=== PATIENT | male | born 1995 | race African-American/Black ===

== ENCOUNTER 2017-03-03 00:03 | Emergency (ER) | payer SELFPAY ==
[2017-03-03] MEDS ORDERED: PROCHLORPERAZINE MALEATE 5 MG TABLET PO ONE (07:04)
--- NOTE | 2017-03-03 07:09 | ER Document Report ---
ED General - General Chief Complaint: Headache >24 hrs old Stated Complaint: HEADACHE TRAVEL OUTSIDE OF THE [place] IN LAST 30 DAYS: No - HPI Patient complains to provider of: headache Notes: Patient coming in for a headache ongoing greater than 24 hours. Patient initially states that he has been diagnosed with migraine headaches however with further questioning patient states he has never seen a doctor for his headaches nor has been formally diagnosed with migraine headaches states that more likely he has a migraine headache right now. Patient states most of his pain is concentrated left temporal region. Denies any nausea vomiting photosensitivity blurry vision numbness tingling unilateral generalized weakness. Denies any history trauma. Patient states he has not tried anything for his headache denies taking any Tylenol or Motrin. - Related Data Allergies/Adverse Reactions: No Known Allergies Allergy (Unverified 03/03/17 00:06) Past Medical History - Social History Smoking Status: Never Smoker Family History: Reviewed & Not Pertinent Patient has suicidal ideation: No Patient has homicidal ideation: No Renal/ Medical History: Denies: Hx Peritoneal Dialysis Surgical Hx: Negative Review of Systems - Review of Systems Constitutional: No symptoms reported EENT: No symptoms reported Cardiovascular: No symptoms reported Respiratory: No symptoms reported Gastrointestinal: No symptoms reported Genitourinary: No symptoms reported Male Genitourinary: No symptoms reported Musculoskeletal: No symptoms reported Skin: No symptoms reported Hematologic/Lymphatic: No symptoms reported Neurological/Psychological: Headaches -: Yes All other systems reviewed and negative Physical Exam - Vital signs Vitals: Temp Pulse Resp BP Pulse Ox 98.4 F 103 H 16 170/81 H 100 03/03/17 00:06 03/03/17 00:06 03/03/17 00:06 03/03/17 00:06 03/03/17 00:06 Interpretation: Normal - General General appearance: Appears well, Alert - HEENT Head: Normocephalic, Atraumatic Eyes: Normal Conjunctiva: Normal Cornea: Normal Extraocular movements intact: Yes Eyelashes: Normal Pupils: PERRL Fundascopic: Normal Ears: Normal External canal: Normal Tympanic membrane: Normal Sinus: Normal Nasal: Normal Pharynx: Normal Neck: Normal - Respiratory Respiratory status: No respiratory distress Chest status: Nontender Breath sounds: Normal Chest palpation: Normal - Cardiovascular Rhythm: Regular Heart sounds: Normal auscultation Murmur: No - Abdominal Inspection: Normal Distension: No distension Bowel sounds: Normal Tenderness: Nontender Organomegaly: No organomegaly - Back Back: Normal, Nontender - Extremities General upper extremity: Normal inspection, Nontender, Normal color, Normal ROM , Normal temperature General lower extremity: Normal inspection, Nontender, Normal color, Normal ROM , Normal temperature, Normal weight bearing. No: Pradip's sign - Neurological Neuro grossly intact: Yes Cognition: Normal Orientation: AAOx4 Ken[place] Coma Scale Eye Opening: Spontaneous Dylan Coma Scale Verbal: Oriented Dylan Coma Scale Motor: Obeys Commands Kenvir Coma Scale Total: 15 Speech: Normal Motor strength normal: LUE, RUE, LLE, RLE Sensory: Normal - Psychological Associated symptoms: Normal affect, Normal mood - Skin Skin Temperature: Warm Skin Moisture: Dry Skin Color: Normal Course - Re-evaluation Re-evalutation: 03/03/17 13:36 The patient presents with headache without signs of [employer] bleed, stroke, infection , or other serious etiology. The patient is neurologically intact. Given the extremely low risk of these diagnoses further testing and evaluation for these possibilities does not appear to be indicated at this time. The patient has been instructed to return if the symptoms worsen or change in any way.. - Vital Signs Vital signs: Temp Pulse Resp BP Pulse Ox 98.5 F 79 18 118/71 98 03/03/17 07:34 03/03/17 07:34 03/03/17 07:34 03/03/17 07:34 03/03/17 07:34 Discharge - Discharge Clinical Impression: Headache Qualifiers: Headache type: unspecified Headache chronicity pattern: unspecified pattern Intractability: not intractable Qualified Code(s): R51 - Headache Condition: Good Disposition: HOME, SELF-CARE Instructions: Headache ([facility]), Cluster Headache ([facility]) Additional Instructions: Please drink plenty water to stay hydrated. Return to the ER symptoms worsen. Take medication as prescribed. You may follow-up with the clinic or Dr. holt. Prescriptions: Aspirin/Acetaminophen/Caffeine [Excedrin Migraine Caplet] 1 each PO BID #20 tablet Prochlorperazine Maleate [Compazine 5 Mg Tablet] 5 mg PO Q6 #20 tablet Forms: Return to Work
[2017-03-03 07:37] VITALS: BP 118/71
== END 2017-03-03 07:37 | disposition home or self-care (01) ==
LOC: ER 00:03
DX: R51 Headache (principal)
CPT/HCPCS: 99283; S0183

== ENCOUNTER 2017-07-28 03:47 | Emergency (ER) | payer SELFPAY ==
--- NOTE | 2017-07-28 05:11 | ER Document Report ---
ED GI/ - General Chief Complaint: Rectal Pain Stated Complaint: RECTAL PAIN Time Seen by Provider: 07/28/17 04:53 Notes: Patient is a 21-year-old male who comes emergency department for chief complaint of "something wrong with my rectal area". He states that for the past 2 years he has intermittently had difficulties with the area feeling like there is something infected or growing, he states that he has had pus discharge from the area multiple times. He denies any current pain. He denies fever or chills. He denies difficulty with bowel movements. He denies any daily medications. He denies any medical history. TRAVEL OUTSIDE OF THE [place] IN LAST 30 DAYS: No - Related Data Allergies/Adverse Reactions: No Known Allergies Allergy (Unverified 03/03/17 00:06) Past Medical History - General Information source: Patient - Social History Smoking Status: Never Smoker Frequency of alcohol use: None Drug Abuse: None Lives with: Family Family History: Reviewed & Not Pertinent Patient has suicidal ideation: No Patient has homicidal ideation: No - Medical History Medical History: Negative Renal/ Medical History: Denies: Hx Peritoneal Dialysis Surgical Hx: Negative - Immunizations Immunizations up to date: Yes Hx Diphtheria, Pertussis, Tetanus Vaccination: Yes Review of Systems - Review of Systems Constitutional: No symptoms reported EENT: No symptoms reported Cardiovascular: No symptoms reported Respiratory: No symptoms reported Gastrointestinal: See HPI Genitourinary: No symptoms reported Male Genitourinary: No symptoms reported Musculoskeletal: No symptoms reported Skin: See HPI Hematologic/Lymphatic: No symptoms reported Neurological/Psychological: No symptoms reported Physical Exam - Vital signs Vitals: Temp Pulse Resp BP Pulse Ox 98.4 F 103 H 18 133/78 H 97 07/28/17 03:55 07/28/17 03:55 07/28/17 03:55 07/28/17 03:55 07/28/17 03:55 Interpretation: Normal - General General appearance: Appears well, Alert, Other - Patient appears nervous but he is otherwise very well-appearing - HEENT Head: Normocephalic, Atraumatic Eyes: Normal Pupils: PERRL - Respiratory Respiratory status: No respiratory distress Chest status: Nontender Breath sounds: Normal Chest palpation: Normal - Cardiovascular Rhythm: Regular. No: Tachycardia Heart sounds: Normal auscultation, S1 appreciated, S2 appreciated Murmur: No - Abdominal Inspection: Normal Distension: No distension Bowel sounds: Normal Tenderness: Nontender. No: Tender, Guarding - Completely soft and benign abdomen Organomegaly: No organomegaly - Rectal Tenderness: No Hemorrhoids: No: External, Anal fissure - Back Back: Normal, Nontender - Extremities General upper extremity: Normal inspection, Nontender, Normal color, Normal ROM , Normal temperature General lower extremity: Normal inspection, Nontender, Normal color, Normal ROM , Normal temperature, Normal weight bearing. No: Pradip's sign - Neurological Neuro grossly intact: Yes Cognition: Normal Orientation: AAOx4 Dylan Coma Scale Eye Opening: Spontaneous [place] Coma Scale Verbal: Oriented Dylan Coma Scale Motor: Obeys Commands Dylan Coma Scale Total: 15 Speech: Normal Motor strength normal: LUE, RUE, LLE, RLE Sensory: Normal - Psychological Associated symptoms: Normal affect, Normal mood - Skin Skin Temperature: Warm Skin Moisture: Dry Skin Color: Normal Location of irregularity: Other - Pilonidal cyst noted, no discharge, tenderness , induration, swelling noted. Otherwise unremarkable skin exam. Course - Re-evaluation Re-evalutation: Unremarkable external rectal examination. Physical examination is consistent with a pilonidal cyst without abscess. No evidence of infection. Patient provided with an up-to-date handout on this, I discussed recommendations for this in detail. Patient states gratefulness on being informed what it is. Discussed follow-up and return precautions. Patient verbalizes understanding and agreement. - Vital Signs Vital signs: Temp Pulse Resp BP Pulse Ox 98 F 84 14 137/76 H 99 07/28/17 06:39 07/28/17 06:39 07/28/17 06:39 07/28/17 06:39 07/28/17 06:39 Discharge - Discharge Clinical Impression: Pilonidal cyst Condition: Stable Disposition: HOME, SELF-CARE Additional Instructions: Your examination shows a pilonidal cyst. There is no evidence that is infected at this time. Because this has had multiple episodes of drainage, I do recommend that you follow-up with surgery for consultation and possible removal of the cyst. See referral. In regards to your constipation issues consider [id number] MiraLAX or Colace occasionally and only if needed, I would try to increase fiber in your diet first. Return to emergency department for any concerning or worsening symptoms including swelling or redness to the area, pain, fever, or any other concerning symptoms. Forms: Return to Work, Elevated Blood Pressure Referrals: RODOLFO AMES MD [ACTIVE STAFF] - Follow up as needed
[2017-07-28 06:41] VITALS: BP 137/76
== END 2017-07-28 06:40 | disposition home or self-care (01) ==
LOC: ER 03:47
DX: L05.91 Pilonidal cyst without abscess (principal); K62.89 Other specified diseases of anus and rectum
CPT/HCPCS: 99283

== ENCOUNTER 2018-05-21 03:50 | Emergency (ER) | payer SELFPAY ==
[2018-05-21] MEDS ORDERED: LIDOCAINE 1% INJ-PF (10 MG/ML) 30 ML SDV INFIL ONE (04:24)
[2018-05-21] MEDS ORDERED: CEFTRIAXONE INJ 250 MG VIAL IM ONE (04:24)
[2018-05-21] MEDS ORDERED: AZITHROMYCIN 250 MG TABLET PO ONE (04:24)
--- NOTE | 2018-05-21 04:26 | ER Document Report ---
ED GI/ - General Chief Complaint: Penile Bleeding Stated Complaint: PENILE PAIN/BLEEDING Time Seen by Provider: 05/21/18 04:19 Notes: The patient is a 22-year-old male who presents after he noticed a small amount of blood in his urine earlier tonight. He is very anxious about this. Patient does have unprotected intercourse with his girlfriend and denies testicular pain , abdominal pain, fevers, flank pain, nausea or vomiting. TRAVEL OUTSIDE OF THE [place] IN LAST 30 DAYS: No - Related Data Allergies/Adverse Reactions: No Known Allergies Allergy (Unverified 03/03/17 00:06) Past Medical History - General Information source: Patient - Social History Smoking Status: Unknown if Ever Smoked Family History: Reviewed & Not Pertinent Renal/ Medical History: Denies: Hx Peritoneal Dialysis - Immunizations Immunizations up to date: Yes Hx Diphtheria, Pertussis, Tetanus Vaccination: Yes Review of Systems - Review of Systems Notes: REVIEW OF SYSTEMS: CONSTITUTIONAL: -fevers, -chills EENT: -eye pain, -difficulty swallowing, -nasal congestion CARDIOVASCULAR: -chest pain, -syncope. RESPIRATORY: -cough, -SOB GASTROINTESTINAL: -abdominal pain, -nausea, -vomiting, -diarrhea GENITOURINARY: +dysuria, +hematuria MUSCULOSKELETAL: -back pain, -neck pain SKIN: -rash or skin lesions. HEMATOLOGIC: -easy bruising or bleeding. LYMPHATIC: -swollen, enlarged glands. NEUROLOGICAL: -altered mental status or loss of consciousness, -headache, - neurologic symptoms PSYCHIATRIC: +anxiety, -depression. ALL OTHER SYSTEMS REVIEWED AND NEGATIVE. Physical Exam - Vital signs Vitals: Temp Pulse Resp BP Pulse Ox 98.4 F 100 18 144/87 H 98 05/21/18 03:56 05/21/18 03:56 05/21/18 03:56 05/21/18 03:56 05/21/18 03:56 - Notes Notes: PHYSICAL EXAMINATION: GENERAL: No acute distress, appears very anxious. HEAD: Atraumatic, normocephalic. EYES: Pupils equal round and reactive to light, extraocular movements intact, sclera anicteric, conjunctiva are normal. ENT: nares patent, oropharynx clear without exudates. Moist mucous membranes. NECK: Normal range of motion, supple without lymphadenopathy LUNGS: Breath sounds clear to auscultation bilaterally and equal. No wheezes rales or rhonchi. HEART: Regular rate and rhythm without murmurs ABDOMEN: Soft, nontender, normoactive bowel sounds. No guarding, no rebound. No masses appreciated. : Non-tender testicles, no penile discharge or bleeding. EXTREMITIES: Normal range of motion, no pitting or edema. No cyanosis. NEUROLOGICAL: Cranial nerves grossly intact. Normal speech, normal gait. Normal sensory and motor exams. PSYCH: Very anxious affect. SKIN: Warm, Dry, normal turgor, no rashes or lesions noted. Course - Re-evaluation Re-evalutation: Patient with mild dysuria and is passing small amount of clots. He does have unprotected intercourse and said he would like to be treated empirically for gonorrhea and chlamydia before the test results. Instructed him to tell his partners to follow-up at the health department for treatment and evaluation. Also told him to always wear condoms. - Vital Signs Vital signs: Temp Pulse Resp BP Pulse Ox 98.4 F 100 18 144/87 H 98 05/21/18 03:56 05/21/18 03:56 05/21/18 03:56 05/21/18 03:56 05/21/18 03:56 Discharge - Discharge Clinical Impression: Dysuria Condition: Stable Disposition: HOME, SELF-CARE Additional Instructions: Have your partner get treated for STDs at the [facility]. Always wear condoms. ANTIBIOTIC THERAPY: You have been given an antibiotic prescription. It's important that you take all the medication, unless instructed otherwise by your physician. Failure to complete the entire course can result in relapse of your condition. Common side effects of antibiotics include nausea, intestinal cramping, or diarrhea. Women may develop vaginal yeast infections, and babies can get yeast (thrush) in the mouth following the use of antibiotics. Contact your physician if you develop significant side effects from this medication. Allergy to this antibiotic can result in hives, wheezing, faintness, or itching. If symptoms of allergy occur, stop the medication and call the doctor. CEPHALOSPORINS: An antibiotic of the cephalosporin class has been prescribed. This type of antibiotic covers a wide variety of infections, including those of the skin, lungs, middle ear, and urinary tract. This antibiotic is somewhat similar to the penicillin family. In rare cases , a person who is allergic to penicillin will also be allergic to this medication. If you have had a severe allergic reaction to penicillin, and have not taken this antibiotic since that time, notify your doctor. Antibiotics which cover many germs ("broad spectrum" antibiotics) are more likely to cause diarrhea or "yeast" infections. Women prone to vaginal yeast problems may suffer an attack after taking this antibiotic. In infants, oral thrush (white spots "stuck" on the cheek) or yeast diaper rash may result. See your doctor if these problems occur. Call the doctor at once if you develop hives, itching, shortness of breath , or lightheadedness. AZITHROMYCIN: Azithromycin (Zithromax) is a broad spectrum antibiotic in the same class as erythromycin. It can treat a variety of bacterial infections, but is most frequently used for respiratory infections. Azithromycin is extremely long-lasting. It accumulates in body tissues and continues to kill bacteria for many days. In order to improve absorption, Azithromycin should be taken at least one hour before or two hours after a meal. It does not have the same strong tendency to upset the stomach as erythromycin and is usually very well tolerated. Patients who have had a rash or other true allergic reactions to erythromycin should not take this medication. Call if you develop gastrointestinal distress, severe diarrhea, rash, hives, itching, or shortness of breath. FOLLOW-UP CARE: If you have been referred to a physician for follow-up care, call the physician s office for an appointment as you were instructed or within the next two days. If you experience worsening or a significant change in your symptoms, notify the physician immediately or return to the Emergency Department at any time for re-evaluation. Forms: Elevated Blood Pressure Referrals: [facility] [NO LOCAL MD] - Follow up as needed
[2018-05-21 04:51] LABS: APPEARANCE,URINE CLOUDY; BILIRUBIN,URINE NEGATIVE (NEGATIVE); COLOR,URINE YELLOW; GLUCOSE, URINE NEGATIVE (NEGATIVE); KETONES,URINE TRACE mg/dL (NEGATIVE); LEUKOCYTE ESTERASE,URINE MODERATE (NEGATIVE); NITRITE,URINE NEGATIVE (NEGATIVE); PROTEIN,URINE 100 mg/dL (NEGATIVE); URINE SPECIFIC GRAVITY 1.032
[2018-05-21] MEDS ORDERED: CEPHALEXIN 500 MG CAPSULE PO ONE (05:00)
[2018-05-21 05:51] VITALS: BP 124/81
[2018-05-21 06:11] LABS: CHLAM PCR DETECTED (NOT DETECT); GON PCR NOT DETECTED (NOT DETECT)
== END 2018-05-21 05:43 | disposition home or self-care (01) ==
LOC: ER 03:50
DX: N30.01 Acute cystitis with hematuria (principal); F41.9 Anxiety disorder, unspecified
CPT/HCPCS: 99283; 96372; 81001; 87491; 87591; J3490; J0696

== ENCOUNTER 2019-02-10 13:59 | Emergency (ER) | payer SELFPAY ==
[2019-02-10] MEDS ORDERED: CEFTRIAXONE INJ 250 MG VIAL IM ONE (14:36)
[2019-02-10] MEDS ORDERED: AZITHROMYCIN 250 MG TABLET PO ONE (14:36)
[2019-02-10] MEDS ORDERED: LIDOCAINE 1% INJ-PF (10 MG/ML) 30 ML SDV NEB ONE (14:36)
[2019-02-10] MEDS ORDERED: METRONIDAZOLE 500 MG TABLET PO ONE (14:37)
--- NOTE | 2019-02-10 14:42 | ER Document Report ---
ED GI/ - General Chief Complaint: Penile Discharge Stated Complaint: PENILE DISCHARGE Time Seen by Provider: 02/10/19 14:25 Mode of Arrival: Ambulatory Information source: Patient Notes: 23-year-old male presents to ED for complaint of white penile discharge since Wednesday. He states he is very irritated and leiva with urination. He states he was tested and treated last year for STDs but nobody told him what he had. He states it is affecting him at work and he needs to be tested and treated and found it was going on. Patient is alert oriented respirations regular and unlabored speaking in full sentences walking with a even steady gait. TRAVEL OUTSIDE OF THE [place] IN LAST 30 DAYS: No - HPI Patient complains to provider of: Other - Penile discharge burning with urination Onset: Other - Wednesday Timing/Duration: Persistent Quality of pain: Burning Severity at maximum: Moderate Pain Level: Denies Associated symptoms: Other - penis Exacerbated by: Other - urination Relieved by: Denies Similar symptoms previously: Yes Recently seen / treated by doctor: No - Related Data Allergies/Adverse Reactions: No Known Allergies Allergy (Verified 02/10/19 14:03) Past Medical History - General Information source: Patient - Social History Smoking Status: Never Smoker Frequency of alcohol use: None Drug Abuse: None Lives with: Alone Family History: Reviewed & Not Pertinent Patient has suicidal ideation: No Patient has homicidal ideation: No - Past Medical History Cardiac Medical History: Reports: None Pulmonary Medical History: Reports: None EENT Medical History: Reports: None Neurological Medical History: Reports: None Endocrine Medical History: Reports: None Renal/ Medical History: Reports: None Malignancy Medical History: Reports None GI Medical History: Reports: None Musculoskeletal Medical History: Reports None Skin Medical History: Reports None Psychiatric Medical History: Reports: None Traumatic Medical History: Reports: None Infectious Medical History: Reports: None Surgical Hx: Negative Past Surgical History: Reports: None - Immunizations Immunizations up to date: Yes Hx Diphtheria, Pertussis, Tetanus Vaccination: Yes Review of Systems - Review of Systems Constitutional: No symptoms reported EENT: No symptoms reported Cardiovascular: No symptoms reported Respiratory: No symptoms reported Gastrointestinal: No symptoms reported Genitourinary: Burning Male Genitourinary: Penile discharge Musculoskeletal: No symptoms reported Skin: No symptoms reported Hematologic/Lymphatic: No symptoms reported Neurological/Psychological: No symptoms reported -: Yes All other systems reviewed and negative Physical Exam - Vital signs Vitals: Temp Pulse Resp BP Pulse Ox 98.2 F 81 16 144/86 H 100 02/10/19 14:07 02/10/19 14:07 02/10/19 14:07 02/10/19 14:07 02/10/19 14:07 Interpretation: Normal - General General appearance: Appears well, Alert - HEENT Head: Normocephalic, Atraumatic Eyes: Normal Pupils: PERRL - Respiratory Respiratory status: No respiratory distress Chest status: Nontender Breath sounds: Normal Chest palpation: Normal - Cardiovascular Rhythm: Regular Heart sounds: Normal auscultation Murmur: No - Abdominal Inspection: Normal Distension: No distension Bowel sounds: Normal Tenderness: Nontender Organomegaly: No organomegaly - Genitourinary Inspection: Penile discharge - white Tenderness: Nontender Cremasteric reflex: Normal Scrotum: Normal - Back Back: Normal, Nontender - Extremities General upper extremity: Normal inspection, Nontender, Normal color, Normal ROM, Normal temperature General lower extremity: Normal inspection, Nontender, Normal color, Normal ROM, Normal temperature, Normal weight bearing. No: Pradip's sign - Neurological Neuro grossly intact: Yes Cognition: Normal Orientation: AAOx4 Douds Coma Scale Eye Opening: Spontaneous Dylan Coma Scale Verbal: Oriented Douds Coma Scale Motor: Obeys Commands Dylan Coma Scale Total: 15 Speech: Normal Motor strength normal: LUE, RUE, LLE, RLE Sensory: Normal - Psychological Associated symptoms: Normal affect, Normal mood - Skin Skin Temperature: Warm Skin Moisture: Dry Skin Color: Normal Course - Vital Signs Vital signs: Temp Pulse Resp BP Pulse Ox 98.3 F 91 16 113/67 100 02/10/19 16:25 02/10/19 16:25 02/10/19 16:25 02/10/19 16:25 02/10/19 16:25 - Laboratory Laboratory results interpreted by me: 02/10/19 02/10/19 14:33 15:16 Ur Leukocyte Esterase LARGE H Chlamydia DNA (PCR) DETECTED H N.gonorrhoeae DNA (PCR) DETECTED H Discharge - Discharge Clinical Impression: Penile discharge, Urethritis, Gonorrhea, Chlamydia Condition: Stable Disposition: HOME, SELF-CARE Additional Instructions: Urethritis You have urethritis, an infection of the urethra. The usual symptoms are pain on urination and discharge. The infection is often caused by gonorrhea or chlamydia. Treatment is antibiotics. In addition, any sexual contacts should be evaluated by a physician as soon as possible. As this infection can be transmitted sexually, refrain from sexual activity until the infection is confirmed as healed by your physician. If gonorrhea or chlamydia is found on culture, the health department must be notified. Call the doctor at once if you develop difficulty passing your urine, high fever, rash, joint swelling, or other new symptoms. Gonorrhea You have been diagnosed with gonorrhea. In men, this germ infects the urethra (and sometimes the throat). Men usually have drainage from the penis and pain with urination. In women, the germ infects the vagina and fallopian tubes. There may be discharge and pelvic pain. Some women have no symptoms at all. The infection can do permanent damage to the tubes and ovaries. It should be taken very seriously. Treatment is antibiotics. It's important that you receive all recommended medication. Use condoms to prevent spread of the infection. Because this infection is spread sexually, your sexual partner must be checked before resuming sexual relations. If a culture shows gonorrhea germs, it must be reported to the health department. Call the doctor or return at once if you develop increasing fever, rash, joint swelling, severe pelvic pain, vaginal bleeding (other than your period), or problems with your bladder or bowels. CEPHALOSPORINS: An antibiotic of the cephalosporin class has been prescribed. This type of antibiotic covers a wide variety of infections, including those of the skin, lungs, middle ear, and urinary tract. This antibiotic is somewhat similar to the penicillin family. In rare cases, a person who is allergic to penicillin will also be allergic to this medication. If you have had a severe allergic reaction to penicillin, and have not taken this antibiotic since that time, notify your doctor. Antibiotics which cover many germs ("broad spectrum" antibiotics) are more likely to cause diarrhea or "yeast" infections. Women prone to vaginal yeast problems may suffer an attack after taking this antibiotic. In infants, oral thrush (white spots "stuck" on the cheek) or yeast diaper rash may result. See your doctor if these problems occur. Call the doctor at once if you develop hives, itching, shortness of breath, or lightheadedness. DOXYCYCLINE: Doxycycline (Vibramycin, Doryx) is an antibiotic of the tetracycline family. This type of drug is useful for infections of the respiratory tract and genital tract, and is sometimes used for intestinal infections. Unlike most tetracyclines, doxycycline can be taken with food. It is longer acting, and (usually) less prone to side effects than regular tetracycline. Tetracycline antibiotics can stain immature teeth and SHOULD NOT BE TAKEN BY CHILDREN, NURSING MOTHERS, OR WOMEN. Tetracyclines can make you more prone to sunburn. Abdominal cramping, nausea, and diarrhea are occasional side effects. Women may experience vaginal yeast infections. Call the doctor at once if you develop hives, itching, shortness of breath, or lightheadedness. AZITHROMYCIN: Azithromycin (Zithromax) is a broad spectrum antibiotic in the same class as erythromycin. It can treat a variety of bacterial infections, but is most frequently used for respiratory infections. Azithromycin is extremely long-lasting. It accumulates in body tissues and continues to kill bacteria for many days. In order to improve absorption, Azithromycin should be taken at least one hour before or two hours after a meal. It does not have the same strong tendency to upset the stomach as erythromycin and is usually very well tolerated. Patients who have had a rash or other true allergic reactions to erythromycin should not take this medication. Call if you develop gastrointestinal distress, severe diarrhea, rash, hives, itching, or shortness of breath. METRONIDAZOLE: Metronidazole (Flagyl) has been prescribed. This medication is used to kill a type of bacteria called anaerobes, and protozoan parasites such as trichomonas and Giardia. Flagyl often causes a metallic taste in the mouth and mild nausea. Do not use alcohol in any form with Flagyl (including alcohol in medication elixirs). Flagyl interacts with alcohol to cause flushing, palpitations, headache, stomach cramps, and vomiting. Do not use Flagyl if you are taking Antabuse (disulfiram). Call the doctor at once if you develop rash, shortness of breath, itching, or lightheadedness. FLUCONAZOLE: Fluconazole (Diflucan) is an antifungal drug. It is useful for serious fungal infections, but is also excellent for oral or vaginal yeast infections. Diflucan interacts with some medicines. This is a concern if you are taking anticoagulants (such as Coumadin), phenytoin (Dilantin), cyclosporin, or oral hypoglycemics (such as tolbutamide, Orinase, glipizide, Glucotrol, glyburide, DiaBeta, Glynase, and Micronase). Be sure the doctor knows if you are taking one of these medicines. We don't know how Diflucan affects . If you are planning to become , discuss this with your doctor. Diflucan has few side effects. Minor side effects may include nausea, headache, or diarrhea. Call the doctor if you develop a skin rash, shortness of breath, or other new symptoms. FOLLOW-UP CARE: If you have been referred to a physician for follow-up care, call the physicians office for an appointment as you were instructed or within the next two days. If you experience worsening or a significant change in your symptoms, notify the physician immediately or return to the Emergency Department at any time for re-evaluation. [facility] Internal Medicine [address] [facility] Open 9:00 AM - 5:00 PM [facility] [address] [facility] - 4:30 PM [facility] [address] [facility] [address] [facility] [address] [facility] Prescriptions: Doxycycline Hyclate 100 mg PO BID #14 capsule Metronidazole [Flagyl 500 mg Tablet] 500 mg PO BID #14 tablet Forms: Elevated Blood Pressure, Return to Work
[2019-02-10 15:35] LABS: APPEARANCE,URINE SLIGHTLY-CLOUDY; BILIRUBIN,URINE NEGATIVE (NEGATIVE); COLOR,URINE YELLOW; GLUCOSE, URINE NEGATIVE (NEGATIVE); KETONES,URINE NEGATIVE (NEGATIVE); LEUKOCYTE ESTERASE,URINE LARGE (NEGATIVE); NITRITE,URINE NEGATIVE (NEGATIVE); PROTEIN,URINE NEGATIVE (NEGATIVE); URINE SPECIFIC GRAVITY 1.019; UROBILINOGEN,URINE NEGATIVE mg/dL (<2.0)
[2019-02-10 16:18] LABS: CHLAM PCR DETECTED (NOT DETECT); GON PCR DETECTED (NOT DETECT)
[2019-02-10 16:26] VITALS: BP 113/67
== END 2019-02-10 16:25 | disposition home or self-care (01) ==
LOC: ER 13:59
DX: N34.2 Other urethritis (principal); B37.9 Candidiasis, unspecified; A54.9 Gonococcal infection, unspecified
CPT/HCPCS: 94640; 99283; 96372; 87086; 81001; 87491; 87591; J3490; J0696

== ENCOUNTER 2019-04-27 04:27 | Emergency (ER) | payer SELFPAY ==
--- NOTE | 2019-04-27 05:58 | ER Document Report ---
ED GI/ - General Chief Complaint: Bloody Stools Stated Complaint: BLOOD IN STOOL Time Seen by Provider: 04/27/19 05:23 Notes: Patient is a 23-year-old male that comes to the emergency department for chief complaint of bright red blood per rectum. This started yesterday, he has noticed it twice. He denies heavy bleeding, dizziness, abdominal pain, fever/chills, injury. He denies history of the same. He is unsure if he is constipated or not. He denies any daily medications or known past medical history. TRAVEL OUTSIDE OF THE [place] IN LAST 30 DAYS: No - Related Data Allergies/Adverse Reactions: No Known Allergies Allergy (Verified 04/27/19 04:33) Past Medical History - General Information source: Patient - Social History Smoking Status: Never Smoker Drug Abuse: None Lives with: Alone Family History: Reviewed & Not Pertinent - Medical History Medical History: Negative Renal/ Medical History: Denies: Hx Peritoneal Dialysis Surgical Hx: Negative - Immunizations Immunizations up to date: Yes Hx Diphtheria, Pertussis, Tetanus Vaccination: Yes Review of Systems - Review of Systems Constitutional: No symptoms reported EENT: No symptoms reported Cardiovascular: No symptoms reported Respiratory: No symptoms reported Gastrointestinal: See HPI Genitourinary: No symptoms reported Male Genitourinary: No symptoms reported Musculoskeletal: No symptoms reported Skin: No symptoms reported Hematologic/Lymphatic: No symptoms reported Neurological/Psychological: No symptoms reported Physical Exam - Vital signs Vitals: Temp Pulse Resp BP Pulse Ox 97.9 F 78 16 145/87 H 98 04/27/19 04:37 04/27/19 04:37 04/27/19 04:37 04/27/19 04:37 04/27/19 04:37 - Notes Notes: GENERAL: Alert, interacts well. No acute distress. HEAD: Normocephalic, atraumatic. EYES: Pupils equal, round, and reactive to light. Extraocular movements intact. ENT: Oral mucosa moist, tongue midline. Oropharynx unremarkable. Airway patent. LUNGS: Clear to auscultation bilaterally, no wheezes, rales, or rhonchi. No respiratory distress. HEART: Regular rate and rhythm. No murmur ABDOMEN: Soft, non-tender. Non-distended. Bowel sounds present in all 4 quadrants. GENITOURINARY: Deferred RECTAL: Small internal hemorrhoid noted at the 8 o'clock position, no current bleeding noted however Hemoccult is positive. No fissure, tenderness, external hemorrhoids, or other abnormality noted. EXTREMITIES: Moves all 4 extremities spontaneously. No edema, normal radial and dorsalis pedis pulses bilaterally. No cyanosis. BACK: no cervical, thoracic, lumbar midline tenderness. No saddle anesthesia, normal distal neurovascular exam. Moves all extremities in full range of motion. NEUROLOGICAL: Alert and oriented x3. Normal speech. Cranial nerves II through XII grossly intact. PSYCH: Normal affect, normal mood. SKIN: Warm, dry, normal turgor. No rashes or lesions noted. Course - Re-evaluation Re-evalutation: Abdomen is soft and benign. Patient well-appearing. Patient reporting bright red blood per rectum in a very small amount. On examination patient does have an internal hemorrhoid, I do suspect this is the source. There is no obvious bleeding on my evaluation however Hemoccult was positive. I suspect this was from the hemorrhoid. I discussed with patient treatment of this, follow-up if symptoms of bleeding persist, return precautions in detail. Patient states satisfaction and agreement. - Vital Signs Vital signs: Temp Pulse Resp BP Pulse Ox 98.2 F 73 16 119/72 100 04/27/19 06:14 04/27/19 06:14 04/27/19 06:14 04/27/19 06:14 04/27/19 06:14 Discharge - Discharge Clinical Impression: BRBPR (bright red blood per rectum) Condition: Stable Disposition: HOME, SELF-CARE Additional Instructions: Your stool is positive for blood, however on evaluation this appears to be an internal hemorrhoid which is probably the source of the bleeding. No other concerning findings were noted on your evaluation. Recommendation is to take the stool softener for the next several days, avoid any straining or extended time on the toilet, after the first few days drink plenty fluids and increase fiber in your diet to reduce possibility of recurrence. Return for any concerning symptoms including heavy bleeding, severe abdominal pain, fever/chills, or any other concerning symptoms. Prescriptions: Docusate Sodium [Colace 100 mg Capsule] 100 mg PO ASDIR PRN #30 capsule PRN Reason: Forms: Return to Work
[2019-04-27 06:14] VITALS: BP 119/72
== END 2019-04-27 06:14 | disposition home or self-care (01) ==
LOC: ER 04:27
DX: K62.5 Hemorrhage of anus and rectum (principal)
CPT/HCPCS: 99284